=== PATIENT | female | born 1960 | race Caucasian/White ===

== ENCOUNTER 2017-08-07 12:27 | Emergency (ER) | payer OTHER ==
[2017-08-07 12:45] VITALS: TEMP 99.8
--- NOTE | 2017-08-07 13:31 | ED ---
General Adult HPI - General Chief complaint: Headache Stated complaint: Blood clot in eye Time Seen by Provider: 08/07/17 12:35 Source: patient, RN notes reviewed Mode of arrival: ambulatory Limitations: no limitations - History of Present Illness Initial comments: This is a 57-year-old female who presents emergency Department complaining of blood in her conjunctiva. Patient states his been no injury or trauma that she knows of. Patient states it happened about 2 weeks ago and it reoccurred again today. Patient denies visual disturbances. Patient denies any numbness weakness. Patient denies any other symptoms at this time. Patient denies any fever chills. Patient stated her blood pressure was high however her pressure was 145/84. I was unable to complete the history because the patient was upset that we weren't addressing her blood pressure and eventually she demanded to leave. - Related Data Home Medications Medication Instructions Recorded Confirmed Hydrochlorothiazide [Hydrodiuril] 25 mg PO DAILY 08/01/13 08/07/17 amLODIPine BESYLATE [Norvasc] 10 mg PO HS 08/01/13 08/07/17 Aspirin [Children's Aspirin] 81 mg PO DAILY 08/07/17 08/07/17 Benazepril HCl [Lotensin] 40 mg PO DAILY 08/07/17 08/07/17 FLUoxetine HCL [PROzac] 10 mg PO DAILY 08/07/17 08/07/17 Allergies Allergy/AdvReac Type Severity Reaction Status Date / Time No Known Allergies Allergy Verified 08/07/17 13:02 Review of Systems ROS Statement: Those systems with pertinent positive or pertinent negative responses have been documented in the HPI. ROS Other: All systems not noted in ROS Statement are negative. Past Medical History Past Medical History: Cancer, CVA/TIA, Hypertension Additional Past Medical History / Comment(s): tia diverticulitis breast cancer skin cancer History of Any Multi-Drug Resistant Organisms: None Reported Past Surgical History: Breast Surgery Past Psychological History: Depression Smoking Status: Never smoker Past Alcohol Use History: None Reported Past Drug Use History: None Reported General Exam - General Exam Comments Initial Comments: GENERAL Patient is well-developed and well-nourished. Patient is in no acute distress. EYES Patient's pupils are equal and round. Extraocular motion is intact. Patient has a subconjunctival hemorrhage in the left eye. SKIN Unremarkable NEURO The patient is alert and oriented 3 PYSCH Patient very anxious and upset that in previous visits to another hospital they missed her stroke and she was very concerned that her subconjunctival hemorrhage might lead to a stroke. Limitations: no limitations Course Vital Signs 08/07/17 08/07/17 12:41 13:28 Temperature 99.8 F H Pulse Rate 77 88 Respiratory 20 18 Rate Blood Pressure 145/84 174/92 O2 Sat by Pulse 99 98 Oximetry Medical Decision Making - Medical Decision Making Patient was upset that we weren't going to address her blood pressure of 145 so I had the nurse repeated when it was 175 patient refused any further intervention or help and was upset and felt as though we were taking her symptoms. So patient was left AMA because they refused to wait for repeat blood pressures that eye and the nurse both recommended. Disposition Clinical Impression: Subconjunctival hemorrhage, Hypertension Disposition: Left Against Medical Advice Condition: Good Instructions: Subconjunctival Hemorrhage (ED) Is patient prescribed a controlled substance at d/c from ED?: No Referrals: Lesli Mclean DO [Primary Care Provider] - 1-2 days Time of Disposition: 13:31
[2017-08-07 13:37] VITALS: BP 174/92; PULSE 88; RESP 18
== END 2017-08-07 13:38 | disposition left against medical advice (07) ==
LOC: EC 12:27
DX: H11.32 Conjunctival hemorrhage, left eye (principal); I10 Essential (primary) hypertension; F32.9 Major depressive disorder, single episode, unspecified; Z79.82 Long term (current) use of aspirin; Z79.899 Other long term (current) drug therapy; Z87.19 Personal history of other diseases of the digestive system; Z86.73 Personal history of transient ischemic attack (TIA), and cerebral infarction without residual deficits; Z85.3 Personal history of malignant neoplasm of breast; Z85.828 Personal history of other malignant neoplasm of skin
CPT/HCPCS: 99283

== ENCOUNTER 2021-04-28 15:05 | Observation (INO) | payer OTHER ==
[2021-04-28] MEDS ORDERED: NITROGLYCERIN SL TABS 0.4 MG TAB SUBLINGUAL STA (15:21)
[2021-04-28] MEDS ORDERED: ASPIRIN 81 MG PO STA (15:21)
[2021-04-28] MEDS ORDERED: ONDANSETRON 4 MG/2 ML VIAL IVP STA (15:22)
[2021-04-28 15:33] LABS: Basophils % (A) 1 %; Eosinophils # (A) 0.2 k/uL (0-0.7); Eosinophils % (A) 3 %; HCT 33.5 % (34.0-46.0); HGB 10.7 gm/dL (11.4-16.0); Hypochromasia Marked; Lymphocytes # (A) 1.6 k/uL (1.0-4.8); Lymphocytes % (A) 23 %; MCH 26.9 pg (25.0-35.0); MCHC 31.9 g/dL (31.0-37.0); MCV 84.4 fL (80.0-100.0); Mean Platelet Volume 9.9; Monocytes # (A) 0.5 k/uL (0-1.0); Monocytes % (A) 7 %; Neutrophils # (A) 4.1 k/uL (1.3-7.7); Neutrophils % (A) 62 %; Platelet Count 206 k/uL (150-450); Poikilocytosis Moderate; RBC 3.97 m/uL (3.80-5.40); RDW 14.4 % (11.5-15.5); WBC 6.7 k/uL (3.8-10.6)
--- NOTE | 2021-04-28 15:33 | ED ---
General Adult HPI - General Chief complaint: Chest Pain Stated complaint: Chest pain Time Seen by Provider: 04/28/21 15:11 Source: patient Mode of arrival: ambulatory Limitations: no limitations - History of Present Illness Initial comments: Dictation was produced using [employer] dictation software. please excuse any grammatical, word or spelling errors. Chief Complaint: 60-year-old female presents to emergency room for chest pain History of Present Illness: Patient is 52-year-old female presents to the emergency department with chest pain. Patient states her symptoms began at 2:00 PM. She states she had felt clammy and nauseated. Shortly after she began having squeezing chest pressure like sensation. States that her pain is a 3 out of a 10 scale. States that it does radiate to her back. Denies any numbness distally paresthesias to the upper extremities. States that the pain is achy. Is not worse with deep inspiration. She does report some associated shortness of breath. Patient denies any cardiac history. She does have a history of stroke and hypertension. She takes an MAIDA inhibitor and a calcium channel blo cker. She is accompanied by her today. The ROS documented in this emergency department record has been reviewed and confirmed by me. Those systems with pertinent positive or negative responses have been documented in the HPI. All other systems are other negative and/or noncontributory. PHYSICAL EXAM: General Impression: Alert and oriented x3, not in acute distress HEENT: Normocephalic atraumatic, extra-ocular movements intact, pupils equal and reactive to light bilaterally, mucous membranes moist. Cardiovascular: Heart regular rate and rhythm Chest: Able to complete full sentences, no retractions, no tachypnea Abdomen: abdomen soft, non-tender, non-distended, no organomegaly Musculoskeletal: Pulses present and equal in all extremities, no peripheral edema Motor: no focal deficits noted Neurological: CN II-XII grossly intact, no focal motor or sensory deficits noted Skin: Intact with no visualized rashes Psych: Normal affect and mood ED course: 60-year-old female with no reported history of cardiac disease. Vital signs upon arrival are within acceptable limits. EKG shows left bundle branch block that appears to be chronic. There is no positive criteria for Sgarbossa. Laboratory evaluation obtained. CBC, coag panel, d-dimer is negative per age- adjusted level. Metabolic panel shows hypokalemia of 3.1. Patient given oral potassium. Troponin is negative. Coag tests negative. Chest x-ray shows no acute processes. Patient reevaluated several minutes after sublingual nitroglycerin. She reports improvement. Patient given topical nitroglycerin and aspirin. Patient will be admitted for cardiac monitoring and cartilage consultation. Case discussed with Dr. Charles. EKG interpretation: Ventricular rate 70, sinus rhythm,. Interval 194, QRS 166, QTC 540, left bundle branch block. No MI prolongation, no QTC prolongation, no ST or T-wave changes noted. EKG compared to 06/17/2014 showing no changes. Overall, this EKG is unremarkable - Related Data Home Medications Medication Instructions Recorded Confirmed amLODIPine BESYLATE [Norvasc] 10 mg PO HS 08/01/13 08/07/17 hydroCHLOROthiazide [Hydrodiuril] 25 mg PO DAILY 08/01/13 08/07/17 Aspirin [Children's Aspirin] 81 mg PO DAILY 08/07/17 08/07/17 Benazepril HCl [Lotensin] 40 mg PO DAILY 08/07/17 08/07/17 FLUoxetine HCL [PROzac] 10 mg PO DAILY 08/07/17 08/07/17 Allergies Allergy/AdvReac Type Severity Reaction Status Date / Time No Known Allergies Allergy Verified 08/07/17 13:02 Review of Systems ROS Statement: Those systems with pertinent positive or pertinent negative responses have been documented in the HPI. ROS Other: All systems not noted in ROS Statement are negative. Past Medical History Past Medical History: Cancer, CVA/TIA, Hypertension Additional Past Medical History / Comment(s): tia diverticulitis breast cancer skin cancer History of Any Multi-Drug Resistant Organisms: None Reported Past Surgical History: Breast Surgery Past Psychological History: Depression Smoking Status: Never smoker Past Alcohol Use History: None Reported Past Drug Use History: None Reported General Exam Limitations: no limitations Course Vital Signs 04/28/21 15:07 Temperature 97.3 F L Pulse Rate 58 L Respiratory 18 Rate Blood Pressure 156/74 O2 Sat by Pulse 100 Oximetry Medical Decision Making - Lab Data Result diagrams: 04/28/21 15:25 04/28/21 15:22 Lab Results 04/28/21 04/28/21 04/28/21 Range/Units 15:22 15:22 15:22 WBC (3.8-10.6) k/uL RBC (3.80-5.40) m/uL Hgb (11.4-16.0) gm/dL Hct (34.0-46.0) % MCV (80.0-100.0) fL MCH (25.0-35.0) pg MCHC (31.0-37.0) g/dL RDW (11.5-15.5) % Plt Count (150-450) k/uL MPV Neutrophils % % Lymphocytes % % Monocytes % % Eosinophils % % Basophils % % Neutrophils # (1.3-7.7) k/uL Lymphocytes # (1.0-4.8) k/uL Monocytes # (0-1.0) k/uL Eosinophils # (0-0.7) k/uL Basophils # (0-0.2) k/uL Hypochromasia Poikilocytosis PT 10.4 (9.0-12.0) sec INR 1.0 (<1.2) APTT 22.0 (22.0-30.0) sec D-Dimer 0.53 (<0.60) mg/L FEU Sodium 137 (137-145) mmol/L Potassium 3.1 L (3.5-5.1) mmol/L Chloride 104 (98-107) mmol/L Carbon Dioxide 23 (22-30) mmol/L Anion Gap 10 mmol/L BUN 17 (7-17) mg/dL Creatinine 0.81 (0.52-1.04) mg/dL Est GFR (CKD-EPI)AfAm >90 (>60 ml/min/1.73 sqM) Est GFR (CKD-EPI)NonAf 81 (>60 ml/min/1.73 sqM) Glucose 160 H (74-99) mg/dL Calcium 9.1 (8.4-10.2) mg/dL Total Bilirubin 0.8 (0.2-1.3) mg/dL AST 30 (14-36) U/L ALT 25 (4-34) U/L Alkaline Phosphatase 93 (38-126) U/L Troponin I <0.012 (0.000-0.034) ng/mL Total Protein 7.7 (6.3-8.2) g/dL Albumin 4.6 (3.5-5.0) g/dL Coronavirus (PCR) (Not Detectd) 04/28/21 04/28/21 Range/Units 15:25 15:25 WBC 6.7 (3.8-10.6) k/uL RBC 3.97 (3.80-5.40) m/uL Hgb 10.7 L (11.4-16.0) gm/dL Hct 33.5 L (34.0-46.0) % MCV 84.4 (80.0-100.0) fL MCH 26.9 (25.0-35.0) pg MCHC 31.9 (31.0-37.0) g/dL RDW 14.4 (11.5-15.5) % Plt Count 206 (150-450) k/uL MPV 9.9 Neutrophils % 62 % Lymphocytes % 23 % Monocytes % 7 % Eosinophils % 3 % Basophils % 1 % Neutrophils # 4.1 (1.3-7.7) k/uL Lymphocytes # 1.6 (1.0-4.8) k/uL Monocytes # 0.5 (0-1.0) k/uL Eosinophils # 0.2 (0-0.7) k/uL Basophils # 0.0 (0-0.2) k/uL Hypochromasia Marked Poikilocytosis Moderate PT (9.0-12.0) sec INR (<1.2) APTT (22.0-30.0) sec D-Dimer (<0.60) mg/L FEU Sodium (137-145) mmol/L Potassium (3.5-5.1) mmol/L Chloride (98-107) mmol/L Carbon Dioxide (22-30) mmol/L Anion Gap mmol/L BUN (7-17) mg/dL Creatinine (0.52-1.04) mg/dL Est GFR (CKD-EPI)AfAm (>60 ml/min/1.73 sqM) Est GFR (CKD-EPI)NonAf (>60 ml/min/1.73 sqM) Glucose (74-99) mg/dL Calcium (8.4-10.2) mg/dL Total Bilirubin (0.2-1.3) mg/dL AST (14-36) U/L ALT (4-34) U/L Alkaline Phosphatase (38-126) U/L Troponin I (0.000-0.034) ng/mL Total Protein (6.3-8.2) g/dL Albumin (3.5-5.0) g/dL Coronavirus (PCR) Not Detected (Not Detectd) Disposition Clinical Impression: Chest pain Disposition: ADMITTED IP TO THIS HOSP Condition: Fair Referrals: Lesli Mclean DO [Primary Care Provider] - 1-2 days
--- NOTE | 2021-04-28 15:39 | XR ---
EXAMINATION TYPE: XR chest 1V portable DATE OF EXAM: 04/28/2021 HISTORY: Shortness of breath. COMPARISON: 06/17/2014 TECHNIQUE: Single view of the chest is submitted. FINDINGS: Demonstrated are scattered senescent parenchymal change. There is no evidence for focal infiltrate. The heart is stable. Hilar and mediastinal structures are within normal limits. Degenerative changes are seen of the dorsal spine. IMPRESSION: 1. Chronic changes without evidence for acute pulmonary disease.
[2021-04-28 15:42] LABS: ALT 25 U/L (4-34); AST 30 U/L (14-36); African American GFR (CKD) >90 (>60 ml/min/1.73 sqM); Albumin 4.6 g/dL (3.5-5.0); Alkaline Phosphatase 93 U/L (38-126); Anion Gap 10 mmol/L; Blood Urea Nitrogen 17 mg/dL (7-17); Calcium 9.1 mg/dL (8.4-10.2); Carbon Dioxide 23 mmol/L (22-30); Chloride 104 mmol/L (98-107); Glucose 160 mg/dL (74-99); Non-African American GFR(CKD) 81 (>60 ml/min/1.73 sqM); Potassium 3.1 mmol/L (3.5-5.1); Sodium 137 mmol/L (137-145); Total Bilirubin 0.8 mg/dL (0.2-1.3); Total Protein 7.7 g/dL (6.3-8.2)
[2021-04-28 16:09] LABS: Prothrombin Time 10.4 sec (9.0-12.0)
[2021-04-28] MEDS ORDERED: POTASSIUM CHLORIDE ER 20 MEQ TAB.ER PO STA ×2 (16:41→17:28)
[2021-04-28] MEDS ORDERED: NITROGLYCERIN SL TABS 0.4 MG TAB SUBLINGUAL PRN (16:50)
[2021-04-28] MEDS ORDERED: ONDANSETRON 4 MG/2 ML VIAL IVP PRN (17:12)
[2021-04-28] MEDS: NITROGLYCERIN OINT 1 INCH/GM PACKET TOPICAL SCH ×2 (17:21→23:42)
[2021-04-28] MEDS ORDERED: ACETAMINOPHEN TAB 500 MG TAB PO PRN (18:58)
[2021-04-28] MEDS ORDERED: SIMETHICONE 80 MG CHEWABLE PO PRN (18:59)
[2021-04-28] MEDS ORDERED: lisinopriL 20 MG TAB PO SCH (21:00)
[2021-04-28] MEDS ORDERED: ATORVASTATIN 20 MG TAB PO SCH (21:00)
[2021-04-29] MEDS: NITROGLYCERIN OINT 1 INCH/GM PACKET TOPICAL SCH ×2 (06:10→11:50)
[2021-04-29 07:49] VITALS: RESP 16
[2021-04-29] MEDS ORDERED: amLODIPine 10 MG TAB PO SCH (09:00)
[2021-04-29] MEDS ORDERED: ASPIRIN 325 MG TAB PO SCH (09:00)
[2021-04-29] MEDS ORDERED: ASPIRIN 81 MG PO SCH (09:00)
[2021-04-29] MEDS ORDERED: METOPROLOL SUCCINATE (ER) 50 MG TAB.ER.24H PO SCH (09:00)
[2021-04-29] MEDS ORDERED: hydroCHLOROthiazide 25 MG TAB PO SCH (09:00)
[2021-04-29] MEDS ORDERED: FLUoxetine HCL 20 MG CAP PO SCH (09:00)
[2021-04-29] MEDS ORDERED: POTASSIUM CHLORIDE ER 20 MEQ TAB.ER PO STA (09:14)
[2021-04-29 09:25] LABS: Chol/HDL Ratio 3.55 Ratio; LDL Cholesterol,Calculated 93.2 mg/dL (0.0-131.0)
[2021-04-29] MEDS ORDERED: PANTOPRAZOLE 40 MG/10 ML VIAL IVP SCH (09:30)
--- NOTE | 2021-04-29 09:42 | P.DS ---
Providers Date of admission: 04/28/21 16:50 Attending physician: Anders Charles MD Consults: 04/28/21 16:50 Consult Physician Urgent Consulting Provider: David Castellon Consult Reason/Comments: christina nunez Do you want consulting provider notified?: Yes Primary care physician: Lesli Mclean [facility] Course: refer to my history of present illness for further details Patient Condition at Discharge: Fair Plan - Discharge Summary New Discharge Prescriptions: Discontinued hydroCHLOROthiazide [Hydrodiuril] 25 mg PO DAILY No Action amLODIPine BESYLATE [Norvasc] 10 mg PO DAILY Benazepril HCl [Lotensin] 40 mg PO HS Metoprolol Succinate [Toprol XL] 50 mg PO DAILY Atorvastatin Calcium [Lipitor] 20 mg PO HS Albuterol Sulfate [Ventolin HFA] 1 puff INHALATION RT-Q4H PRN PRN Reason: Shortness Of Breath Vitamin C/Biotin [Hair, Skin and Nails Chew] 1 tab PO DAILY FLUoxetine HCL 40 mg PO DAILY Acetaminophen Tab [Tylenol Tab] 500 mg PO Q6H PRN PRN Reason: Pain Or Fever > 100.5 Multivit-Min/Iron/Folic/Lutein [Centrum Silver Women Tablet] 1 tab PO DAILY metFORMIN HCL [Glucophage] 500 mg PO HS PRN PRN Reason: HIGH BLOOD SUGAR Discharge Medication List amLODIPine BESYLATE [Norvasc] 10 mg PO DAILY 08/01/13 [History] Benazepril HCl [Lotensin] 40 mg PO HS 08/07/17 [History] Acetaminophen Tab [Tylenol Tab] 500 mg PO Q6H PRN 04/28/21 [History] Albuterol Sulfate [Ventolin HFA] 1 puff INHALATION RT-Q4H PRN 04/28/21 [History] Atorvastatin Calcium [Lipitor] 20 mg PO HS 04/28/21 [History] FLUoxetine HCL 40 mg PO DAILY 04/28/21 [History] Metoprolol Succinate [Toprol XL] 50 mg PO DAILY 04/28/21 [History] Multivit-Min/Iron/Folic/Lutein [Centrum Silver Women Tablet] 1 tab PO DAILY 04/28/21 [History] Vitamin C/Biotin [Hair, Skin and Nails Chew] 1 tab PO DAILY 04/28/21 [History] metFORMIN HCL [Glucophage] 500 mg PO HS PRN 04/28/21 [History] Follow up Appointment(s)/Referral(s): Lesli Mclean DO [Primary Care Provider] - 3 Days Yonathan Tran MD [STAFF PHYSICIAN] - 1 Week Discharge Disposition: HOME SELF-CARE
--- NOTE | 2021-04-29 09:42 | P.HPIM ---
History of Present Illness 52-year-old the female came in with compensative chest pain which started yesterday while she was shopping she didn't eat all day yesterday patient has a retrosternal burning sensation along with nausea. Patient's pain radiates to t he back as well. Patient denied any fever chills patient had an EKG which showed left bundle branch block which is not new. Patient is mildly bradycardic patient is on a beta estela. Patient on multiple medications for hypertension including tomorrow thiazide because of which patient is hyponatremic received 40 mg of potassium yesterday we will give her 40 morbidly milliequivalents of potassium. Patient has some symptoms consistent with esophagitis as well. Potassium worsens esophagitis. Patient is also on MAIDA inhibitor and calcium channel estela. Patient denied any previous history of coronary artery disease. Patient does have family history of premature coronary artery disease in father at age 64. REVIEW OF SYSTEMS: CONSTITUTIONAL: No fever, no malaise, no fatigue. HEENT: No recent visual problems or hearing problems. Denied any sore throat. CARDIOVASCULAR: No orthopnea, PND, no palpitations, no syncope. PULMONARY: No shortness of breath, no cough, no hemoptysis. GASTROINTESTINAL: No diarrhea,no vomiting, no abdominal pain. NEUROLOGICAL: No headaches, no weakness, no numbness. HEMATOLOGICAL: Denies any bleeding or petechiae. GENITOURINARY: Denies any burning micturition, frequency, or urgency. MUSCULOSKELETAL/RHEUMATOLOGICAL: Denies any joint pain, swelling, or any muscle pain. ENDOCRINE: Denies any polyuria or polydipsia. The rest of the 14-point review of systems is negative. PHYSICAL EXAMINATION: GENERAL: The patient is alert and oriented x3, not in any acute distress. Well developed, well nourished. HEENT: Pupils are round and equally reacting to light. EOMI. No scleral icterus. No conjunctival pallor. Normocephalic, atraumatic. No pharyngeal erythema. No thyromegaly. CARDIOVASCULAR: S1 and S2 present. No murmurs, rubs, or gallops. PULMONARY: Chest is clear to auscultation, no wheezing or crackles. ABDOMEN: Soft, nontender, nondistended, normoactive bowel sounds. No palpable organomegaly. MUSCULOSKELETAL: No joint swelling or deformity. EXTREMITIES: No cyanosis, clubbing, or pedal edema. NEUROLOGICAL: Gross neurological examination did not reveal any focal deficits. SKIN: No rashes. Assessment and plan Chest pain most probably secondary to gastroesophageal reflux disease and esophagitis, ruled out acute coronary syndromes cariology valid the patient echo is being obtained if cleared by cardiology patient will be discharged today considering her pain going to the back we'll also obtain gallbladder ultrasound to rule out any gallstones -hypertension: Considering her hypokalemia and no low normal blood pressures, and a had esophagitis history of discontinued and will thiazide as long as she is on hydrocodone presently patient will need potassium supplementation. Although if her blood pressure is not controlled without diuretics patient can be restarted with the potassium supplementation as an outpatient and cut down the MAIDA inhibitor at that time. Assessment medications will be continue -CVA in the past -Type 2 diabetes mellitus : Past Medical History Past Medical History: Cancer, CVA/TIA, Diabetes Mellitus, Hypertension Additional Past Medical History / Comment(s): Breast and uterine cancer, tia, diverticulitis,skin cancer, migraine aura History of Any Multi-Drug Resistant Organisms: None Reported Past Surgical History: Breast Surgery, Hysterectomy Additional Past Surgical History / Comment(s): Left lumpectomy Past Anesthesia/Blood Transfusion Reactions: No Reported Reaction Past Psychological History: Depression Smoking Status: Never smoker Past Alcohol Use History: Occasional Past Drug Use History: None Reported Medications and Allergies Home Medications Medication Instructions Recorded Confirmed Type amLODIPine BESYLATE [Norvasc] 10 mg PO DAILY 08/01/13 04/28/21 History Benazepril HCl [Lotensin] 40 mg PO HS 08/07/17 04/28/21 History Acetaminophen Tab [Tylenol Tab] 500 mg PO Q6H PRN 04/28/21 04/28/21 History Albuterol Sulfate [Ventolin HFA] 1 puff INHALATION RT-Q4H PRN 04/28/21 04/28/21 History Atorvastatin Calcium [Lipitor] 20 mg PO HS 04/28/21 04/28/21 History FLUoxetine HCL 40 mg PO DAILY 04/28/21 04/28/21 History Metoprolol Succinate [Toprol XL] 50 mg PO DAILY 04/28/21 04/28/21 History Multivit-Min/Iron/Folic/Lutein 1 tab PO DAILY 04/28/21 04/28/21 History [Centrum Silver Women Tablet] Vitamin C/Biotin [Hair, Skin and 1 tab PO DAILY 04/28/21 04/28/21 History Nails Chew] metFORMIN HCL [Glucophage] 500 mg PO HS PRN 04/28/21 04/28/21 History Allergies Allergy/AdvReac Type Severity Reaction Status Date / Time No Known Allergies Allergy Verified 04/28/21 17:08 Physical Exam Vitals: Vital Signs Temp Pulse Pulse Resp BP BP Pulse Ox 04/29/21 07:20 98.2 F 65 16 109/65 96 04/29/21 02:20 98.4 F 74 18 105/61 92 L 04/29/21 02:00 62 04/28/21 19:51 62 18 04/28/21 19:45 97.4 F L 62 17 112/48 97 04/28/21 18:23 97.2 F L 62 18 133/64 97 04/28/21 17:26 56 L 18 140/85 100 04/28/21 15:07 97.3 F L 58 L 18 156/74 100 Intake and Output 04/28/21 04/29/21 04/29/21 22:59 06:59 14:59 Intake Total 0 118 Balance 0 118 Intake: Oral 0 118 Other: Voiding Method Toilet # Voids 1 2 Weight 97.522 kg Results CBC & Chem 7: 04/28/21 15:25 04/28/21 15:22 Labs: Abnormal Lab Results - Last 24 Hours (Table) 04/28/21 04/28/21 Range/Units 15:22 15:25 Hgb 10.7 L (11.4-16.0) gm/dL Hct 33.5 L (34.0-46.0) % Potassium 3.1 L (3.5-5.1) mmol/L Glucose 160 H (74-99) mg/dL Thrombosis Risk Factor Assmnt - Choose All That Apply Any of the Below Risk Factors Present?: Yes Each Factor Represents 1 point: Age 41-60 years, Obesity (BMI >25) Other Risk Factors: No Other congenital or acquired thrombophilia - If yes, enter type in comment: No Thrombosis Risk Factor Assessment Total Risk Factor Score: 2 Thrombosis Risk Factor Assessment Level: Low Risk
--- NOTE | 2021-04-29 11:01 | US ---
EXAMINATION TYPE: US gallbladder DATE OF EXAM: 04/29/2021 COMPARISON: NONE CLINICAL HISTORY: gall stones. Pain. EXAM MEASUREMENTS: Liver Length: 14.4 cm Gallbladder Wall: 0.5 cm CBD: 0.7 cm Right Kidney: 11.3 x 4.1 x 5.2 cm Pancreas: Obscured by bowel gas Liver: wnl Gallbladder: cholelithiasis, thickened wall with pericholecystic fluid Evidence for sonographic Vazquez's sign: no CBD: wnl Right Kidney: wnl as seen partially obscured by bowel gas Initial visualized images of pancreas show slight heterogeneous appearance without mass or ductal dil atation. Entire pancreas not seen due to overlying bowel gas. Visualized liver fairly homogeneous wit hout mass or intrahepatic ductal dilatation. There is mobile intraluminal gallstone with distended ga llbladder kendrick and areas of mild wall thickening and adjacent fluid. Sonographic Vazquez sign is nega tive. Common bile duct upper limits of normal to minimally dilated. IMPRESSION: Cannot exclude acute cholecystitis in appropriate clinical setting. Consider HIDA scan ev aluation.
--- NOTE | 2021-04-29 14:24 | P.CRDCN ---
History of Present Illness Consult date: 04/29/21 Requesting physician: Anders Charles Reason for Consult (text): chest pain Chief complaint: chest pressure, nausea History of present illness: This is a pleasant 60-year-old female patient with a past medical history of hypertension, hyperlipidemia, diabetes type II, uterine cancer, breast cancer, skin cancer, and previously told she has a left bundle branch block. Presented to the emergency department with complaints of chest pressure. Her and her were walking through the grocery store when she developed some pressure in her chest and her abdomen felt quite nauseous developed a discomfort in her right upper quadrant that radiated through to her back and became somewhat diaphoretic and mild palpitations.. She went home and the symptoms recurred so she decided to come be evaluated in the emergency department. EKG on admission showed sinus mechanism with a left bundle branch block and PVC. Upon review an EKG from 2014 also showed evidence of a left bundle branch block. According to the patient she's not had any prior cardiac workup in the past. Chest x-ray on admission showed chronic changes without evidence for acute pulmonary disease. Laboratory values showed hemoglobin 10.7, potassium 3.1, BUN 17, creatinine 0.81, troponins negative 3. [place] virus PCR was not detected. Vital signs have been stable. Current home medications include metformin 500 mg by mouth daily at bedtime, hydrochlorothiazide 25 mg by mouth daily, metoprolol succinate 50 mg by mouth daily, benazepril 40 mg by mouth daily at bedtime, amlodipine 10 mg daily, and atorvastatin 20 mg by mouth daily at bedtime. Upon examination patient is resting comfortably in bed. She has no current complaints at this time. She does complain of mild dyspnea on exertion when she walks a lot. D enies any complaints of edema or PND. She has noticed a wheeze at times since she had COVID-19 a year and half ago. Past Medical History Past Medical History: Cancer, CVA/TIA, Diabetes Mellitus, Hypertension Additional Past Medical History / Comment(s): Breast and uterine cancer, tia, diverticulitis,skin cancer, migraine aura History of Any Multi-Drug Resistant Organisms: None Reported Past Surgical History: Breast Surgery, Hysterectomy Additional Past Surgical History / Comment(s): Left lumpectomy Past Anesthesia/Blood Transfusion Reactions: No Reported Reaction Past Psychological History: Depression Smoking Status: Never smoker Past Alcohol Use History: Occasional Past Drug Use History: None Reported Medications and Allergies Home Medications Medication Instructions Recorded Confirmed Type amLODIPine BESYLATE [Norvasc] 10 mg PO DAILY 08/01/13 04/28/21 History Benazepril HCl [Lotensin] 40 mg PO HS 08/07/17 04/28/21 History Acetaminophen Tab [Tylenol Tab] 500 mg PO Q6H PRN 04/28/21 04/28/21 History Albuterol Sulfate [Ventolin HFA] 1 puff INHALATION RT-Q4H PRN 04/28/21 04/28/21 History Atorvastatin Calcium [Lipitor] 20 mg PO HS 04/28/21 04/28/21 History FLUoxetine HCL 40 mg PO DAILY 04/28/21 04/28/21 History Metoprolol Succinate [Toprol XL] 50 mg PO DAILY 04/28/21 04/28/21 History Multivit-Min/Iron/Folic/Lutein 1 tab PO DAILY 04/28/21 04/28/21 History [Centrum Silver Women Tablet] Vitamin C/Biotin [Hair, Skin and 1 tab PO DAILY 04/28/21 04/28/21 History Nails Chew] metFORMIN HCL [Glucophage] 500 mg PO HS PRN 04/28/21 04/28/21 History Allergies Allergy/AdvReac Type Severity Reaction Status Date / Time No Known Allergies Allergy Verified 04/28/21 17:08 Physical Exam Vitals: Vital Signs Temp Pulse Pulse Resp BP BP Pulse Ox 04/29/21 07:20 98.2 F 65 16 109/65 96 04/29/21 02:20 98.4 F 74 18 105/61 92 L 04/29/21 02:00 62 04/28/21 19:51 62 18 04/28/21 19:45 97.4 F L 62 17 112/48 97 04/28/21 18:23 97.2 F L 62 18 133/64 97 04/28/21 17:26 56 L 18 140/85 100 04/28/21 15:07 97.3 F L 58 L 18 156/74 100 Intake and Output 04/28/21 04/29/21 04/29/21 22:59 06:59 14:59 Intake Total 0 Balance 0 Intake: Oral 0 Other: Voiding Method Toilet # Voids 1 2 Weight 97.522 kg PHYSICAL EXAMINATION: This is a 60-year-old female in no apparent distress at the time of my examination. VITAL SIGNS: Blood pressure 109/65, heart rate 65, respirations 18, temp 98.2F. Patient is 96 % on room air. HEENT: Head is atraumatic, normocephalic. Pupils are equal, round. Sclerae anicteric. Conjunctivae are clear. Mucous membranes of the mouth are moist. Neck is supple. There is no elevated jugular venous pressure. No carotid bruit is heard. CHEST EXAMINATION: Clear to auscultation bilaterally. No wheezes rales or rhonchi. Respirations even and nonlabored. HEART EXAMINATION: Heart regular, positive S1 and S2. No S3. No S4. With a systolic murmur at the base. ABDOMEN: Soft, nontender. Bowel sounds are heard. No organomegaly noted. EXTREMITIES: 2+ peripheral pulses with no evidence of peripheral edema and no calf tenderness noted. NEUROLOGIC EXAMINATION: Patient is awake, alert and oriented x3. Results 04/28/21 15:25 04/28/21 15: Cardiac Enzymes 04/28/21 04/28/21 04/28/21 Range/Units 15:22 15: 17:12 AST 30 (14-36) U/L Troponin I <0.012 <0.012 (0.000-0.034) ng/mL 04/28/21 Range/Units 19:41 AST (14-36) U/L Troponin I <0.012 (0.000-0.034) ng/mL Coagulation 04/28/21 Range/Units 15: PT 10.4 (9.0-12.0) sec APTT 22.0 (22.0-30.0) sec CBC 04/28/21 Range/Units 15:25 WBC 6.7 (3.8-10.6) k/uL RBC 3.97 (3.80-5.40) m/uL Hgb 10.7 L (11.4-16.0) gm/dL Hct 33.5 L (34.0-46.0) % Plt Count 206 (150-450) k/uL Comprehensive Metabolic Panel 04/28/21 Range/Units 15:22 Sodium 137 (137-145) mmol/L Potassium 3.1 L (3.5-5.1) mmol/L Chloride 104 (98-107) mmol/L Carbon Dioxide 23 (22-30) mmol/L BUN 17 (7-17) mg/dL Creatinine 0.81 (0.52-1.04) mg/dL Glucose 160 H (74-99) mg/dL Calcium 9.1 (8.4-10.2) mg/dL AST 30 (14-36) U/L ALT 25 (4-34) U/L Alkaline Phosphatase 93 (38-126) U/L Total Protein 7.7 (6.3-8.2) g/dL Albumin 4.6 (3.5-5.0) g/dL Current Medications Generic Name Dose Route Start Last Admin Trade Name Freq PRN Reason Stop Dose Admin Acetaminophen 500 mg 04/28/21 18:58 Acetaminophen Tab 500 Mg Tab PO Q6H PRN Mild Pain or Fever > 100.5 Amlodipine Besylate 10 mg 04/29/21 09:00 Amlodipine 10 Mg Tab PO DAILY [facility] Aspirin 81 mg 04/29/21 09:00 Aspirin 81 Mg PO DAILY [facility] Atorvastatin Calcium 20 mg 04/28/21 21:00 04/28/21 20:40 Atorvastatin 20 Mg Tab PO 20 mg HS [facility] Administration Fluoxetine HCl 40 mg 04/29/21 09:00 Fluoxetine Hcl 20 Mg Cap PO DAILY [facility] Hydrochlorothiazide 25 mg 04/29/21 09:00 Hydrochlorothiazide 25 Mg Tab PO DAILY [facility] Lisinopril 40 mg 04/28/21 21:00 04/28/21 20:40 Lisinopril 20 Mg Tab PO 40 mg HS [facility] Administration Metoprolol Succinate 50 mg 04/29/21 09:00 Metoprolol Succinate (Er) 50 Mg Tab.Er.24h PO DAILY [facility] Nitroglycerin 0.4 mg 04/28/21 16:50 Nitroglycerin Sl Tabs 0.4 Mg Tab SUBLINGUAL Q5M PRN Chest Pain Nitroglycerin 1 inch 04/28/21 18:00 04/29/21 06:10 Nitroglycerin Oint 1 Inch/Gm Packet TOPICAL Not Given Q6HR [facility] Ondansetron HCl 4 mg 04/28/21 17:12 04/28/21 17:21 Ondansetron 4 Mg/2 Ml Vial IVP 4 mg Q6HR PRN Administration Nausea And Vomiting Simethicone 80 mg 02/04/22 18:59 Simethicone 80 Mg Chewable PO QID PRN Indigestion Intake and Output 04/28/21 04/29/21 04/29/21 22:59 06:59 14:59 Intake Total 0 Balance 0 Intake: Oral 0 Other: Voiding Method Toilet # Voids 1 2 Weight 97.522 kg 04/28/21 15:25 04/28/21 15:22 EKG Interpretations (text) Sinus rhythm with left bundle branch block and occasional PVC Assessment and Plan Assessment: #1 symptoms of chest pressure, right upper quadrant pain with nausea and mild palpitations, troponins negative 3, EKG showing left bundle branch block unchanged compared to previous #2 left bundle branch block #3 hypertension #4 hyperlipidemia #5 type 2 diabetes mellitus Plan: From cardiology's perspective we'll obtain a 2-D echo with Doppler study to assess cardiac structure and function. An acute coronary event has been ruled out troponins have been negative 3 EKG does show left bundle-branch block pattern but this unchanged since 2015. Depending on the findings of the echocardiogram and patient's symptoms further recommendations will be made. 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 Patient was seen and examined.
[2021-04-29 14:37] VITALS: BP 113/60; PULSE 70; TEMP 99.1
--- NOTE | 2021-04-29 14:50 | ECHOF ---
Referral Reason:chest pain MEASUREMENTS -------- HEIGHT: 167.6 cm WEIGHT: 97.5 kg BP: RVIDd: 2.1 cm (< 3.3) IVSd: 1.4 cm (0.6 - 1.1) LVIDd: 5.4 cm (3.9 - 5.3) LVPWd: 1.3 cm (0.6 - 1.1) IVSs: 1.8 cm LVIDs: 3.7 cm LVPWs: 2.0 cm LAESV Index (A-L): 31.46 ml/m Ao Diam: 3.4 cm (2.0 - 3.7) AV Cusp: 2.2 cm (1.5 - 2.6) LA Diam: 3.2 cm (2.7 - 3.8) MV EXCURSION: 18.742 mm (> 18.000) MV EF SLOPE: 41 mm/s (70 - 150) EPSS: 1.0 cm MV E Nitish: 1.19 m/s MV DecT: 351 ms MV A Nitish: 0.99 m/s MV E/A Ratio: 1.20 AV maxP.80 mmHg AV meanP.80 mmHg RAP: 5.00 mmHg RVSP: 32.94 mmHg FINDINGS -------- Sinus rhythm. BBB This was a technically adequate study. The left ventricular size is normal. There is moderate concentric left ventricular hypertrophy. O verall left ventricular systolic function is mildly impaired with, an EF between 45 - 50 %. Normal LAP. Grade 1 Diastolic Dysfunction. Septal wall motion is delayed, and consistent with conduction d elay/bundle branch block. Inferiorlateral Hypokinesis The right ventricle is normal in size. LA is midly dilated 29-33ml/m2. The right atrial size is normal. Aortic valve is trileaflet and is mildly thickened. Peak/mean gradient across the Aortic Valve is 1 4.80mmHg / 8.80mmHg. The mitral valve is normal. There is trace mitral regurgitation. The tricuspid valve appears structurally normal. Mild tricuspid regurgitation present. Right vent ricular systolic pressure is normal at < 35 mmHg. There is no pulmonic regurgitation present. The aortic root size is normal. Normal inferior vena cava with normal inspiratory collapse consistent with estimated right atrial pre ssure of 5 mmHg. There is no pericardial effusion. CONCLUSIONS -------- 1. BBB 2. There is moderate concentric left ventricular hypertrophy. 3. Overall left ventricular systolic function is mildly impaired with, an EF between 45 - 50 %. 4. Normal LAP. Grade 1 Diastolic Dysfunction. 5. Septal wall motion is delayed, and consistent with conduction delay/bundle branch block. 6. Inferiorlateral Hypokinesis 7. LA is midly dilated 29-33ml/m2. 8. Aortic valve is trileaflet and is mildly thickened. 9. Peak/mean gradient across the Aortic Valve is 14.80mmHg / 8.80mmHg. 10. There is trace mitral regurgitation. 11. Mild tricuspid regurgitation present. 12. There is no pericardial effusion. PRECISION AGRICULTURE TECHNICIAN: Vonnie Cabral RDCS
[2021-04-29] MEDS ORDERED: lisinopriL 20 MG TAB PO SCH (21:00)
== END 2021-04-29 15:57 | disposition home or self-care (01) ==
LOC: EC 15:05 → 6NMEDSUR 16:50
PROVIDERS: ADMIT Family Medicine; ATTEND Family Medicine
DX: R07.89 Other chest pain (principal); R10.11 Right upper quadrant pain; R11.0 Nausea; R00.2 Palpitations; I44.7 Left bundle-branch block, unspecified; I10 Essential (primary) hypertension; E78.5 Hyperlipidemia, unspecified; E11.9 Type 2 diabetes mellitus without complications; R23.1 Pallor; R06.02 Shortness of breath; E87.6 Hypokalemia; K57.92 Diverticulitis of intestine, part unspecified, without perforation or abscess without bleeding; F32.A Depression, unspecified; R61 Generalized hyperhidrosis; R06.2 Wheezing; R06.09 Other forms of dyspnea; R00.1 Bradycardia, unspecified; E87.1 Hypo-osmolality and hyponatremia; K21.9 Gastro-esophageal reflux disease without esophagitis; K20.90 Esophagitis, unspecified without bleeding; K80.20 Calculus of gallbladder without cholecystitis without obstruction; I07.1 Rheumatic tricuspid insufficiency; E66.9 Obesity, unspecified; Z68.34 Body mass index [BMI] 34.0-34.9, adult; Z20.822 Contact with and (suspected) exposure to COVID-19; Z86.73 Personal history of transient ischemic attack (TIA), and cerebral infarction without residual deficits; Z86.16 Personal history of COVID-19; Z79.899 Other long term (current) drug therapy; Z79.82 Long term (current) use of aspirin; Z79.84 Long term (current) use of oral hypoglycemic drugs; Z85.828 Personal history of other malignant neoplasm of skin; Z85.3 Personal history of malignant neoplasm of breast; Z85.42 Personal history of malignant neoplasm of other parts of uterus; Z90.710 Acquired absence of both cervix and uterus; Z82.49 Family history of ischemic heart disease and other diseases of the circulatory system
CPT/HCPCS: 96375; 96376; 96374; 99285; 36415; 93005; 93306; 85379; 80061; 80053; 84484; 85025; 85610; 85730; 87635; 71045; 76705; G0378 ×2; J2405; C9113